=== PATIENT | female | born 1990 ===

== ENCOUNTER 2016-09-22 07:33 | Inpatient (IN) | payer OTHER, MEDICAID ==
[2016-09-22 08:14] VITALS: BMI 25.0
[2016-09-22] MEDS ORDERED: Sodium Citrate/Citric Acid 15 ml Sol PO ONE (08:14)
[2016-09-22] MEDS ORDERED: cefOXitin IV 1 gm in Dextrose 50 ML IVPB ONE (08:14)
[2016-09-22] MEDS ORDERED: Lactated Ringer's 1,000 ML IV SCH (08:15)
--- NOTE | 2016-09-22 08:38 | OBHP ---
Datetime: 09/22/2016 08:30 IP Adm Impression: Term, intrauterine ; Active labor IP Chief Complaint Other: mhftr mutation IP Admit Plan: Admit to unit; Initiate Section protocol Admit Comment, IP Provider: at 38.5weeks came with ctxs started at 6 am, 1-4 min, 9/110. pt has vaginal bleding, no lof,+fm. obx primi pmh MTHFR Gene mutayion soch denies ve 4/100/-2 a/p at 38+weeks in labor/MTHFR Gene muation/h/o Subarchonoic hemmorage in previous baby plN ADMIT TO L _D NPO/IVF LABS CONT MICHAEL AND EFM PTT/PT/INR ANTHESIA AWARE SKIN ABS INFORMED CONSENT TAKEN Pelvic Type - PN: Adequate Extremities - PN: Normal Abdomen - PN: Normal Back - PN: Normal Breast - PN: Normal Lungs - PN: Normal Heart - PN: Normal Thyroid - PN: Normal Neurologic - PN: Normal HEENT - PN: Normal General - PN: Normal FHR - Baseline A Provider: 130 Contraction Comments Provider: q1-4 Comments, ACOG Physical Exam: gravid,non tender ext no edema,no calf ten ve 4/100/-2 IP Hx Assessment: The History has been Reviewed and is Current EGA AdmitDate IP: 38.5 Vital Signs Provider: Reviewed; Within Normal Limits IP Chief Complaint: Uterine contractions NICHD Variability Prov Fetus A: Moderate 6-25bpm NICHD Accel Fetus A IP Provider: 15X15 FHR Category Provider Fetus A: Category I Dilatation, Provider: 4 Effacement, Provider: 100 Station, Provider: -2 Genitourinary Exam: Normal DTRs - PN: Normal
[2016-09-22 08:41] LABS: HEMATOCRIT 38.4 % (34.0-47.0); MEAN CELL VOLUME 92.5 fL (81.0-99.0); MEAN CORPUSCULAR HEMOGLOBIN 29.5 pg (27.0-31.0); MEAN CORPUSCULAR HGB CONC 31.9 g/dL (33.0-37.0); MEAN PLATELET VOLUME 9.8 fL (7.2-11.7); WHITE BLOOD COUNT 14.5 K/uL (4.8-10.8)
[2016-09-22] MEDS ORDERED: cefOXitin IV 2 gm in Dextrose 50 ML IVPB ONE (08:41)
[2016-09-22] MEDS ORDERED: Oxytocin 20 units in LR 2,000 ML IV ONE (08:41)
[2016-09-22 08:47] LABS: CHLORIDE 100 mmol/L (98-107); POTASSIUM 3.6 mmol/L (3.6-5.2); SODIUM 137 mmol/L (132-148)
[2016-09-22 08:50] LABS: ALB/GLOB RATIO 1.1 (1.0-2.1); ALKALINE PHOSPHATASE 132 U/L (38-126); ALT/SGPT 16 U/L (9-52); AST/SGOT 20 U/L (14-36); BILIRUBIN,TOTAL 0.7 mg/dL (0.2-1.3); BLOOD UREA NITROGEN 6 mg/dL (7-17); CARBON DIOXIDE 23 mmol/L (22-30); GFR AFRICAN-AMERICAN > 60; GLUCOSE,RANDOM 80 mg/dL (65-105); TOTAL PROTEIN 6.8 g/dL (6.3-8.3)
[2016-09-22 08:51] LABS: CALCIUM 8.5 mg/dl (8.6-10.4)
[2016-09-22] MEDS ORDERED: Morphine 1 mg/ml preservative-free Inj(Duramorph) ONE (08:56)
[2016-09-22] MEDS ORDERED: ePHEDrine 50 mg/ml Inj ONE (09:08)
[2016-09-22] MEDS ORDERED: Oxytocin 10 Units/ml Inj ONE (09:15)
[2016-09-22] MEDS ORDERED: Oxycodone/Acetaminophen 5/325 mg Tab PO PRN (09:38)
[2016-09-22] MEDS ORDERED: Enoxaparin 40 mg Syringe SC ONE (09:39)
[2016-09-22] MEDS ORDERED: Enoxaparin 40 mg Syringe SC SCH (09:45)
[2016-09-22] MEDS ORDERED: Naloxone 0.4 mg/ml Inj (Adult) IVP PRN (09:49)
[2016-09-22] MEDS ORDERED: DiphenhydrAMINE 50 mg/ml Inj IVP PRN (09:49)
--- NOTE | 2016-09-22 09:51 | PCM.SURG1 ---
Surgeon's Initial Post Op Note - Surgeon's Notes Surgeon: dr huerta Pulper Operator: dr myers Type of Anesthesia: Spinal Anesthesia Administered By: dr dixon Pre-Operative Diagnosis: 26 yr at 38+weeks h/o mhtfr mutation in labor Operative Findings: see the op reort Post-Operative Diagnosis: same Operation Performed: primary section Specimen/Specimens Removed: fetus placente. cord blod. cord gas Estimated Blood Loss: EBL {In ML}: 700 Blood Products Given: N/A Drains Used: No Drains Post-Op Condition: Good Date of Surgery/Procedure: 09/22/16 Time of Surgery/Procedure: 10:00
[2016-09-22 09:56] LABS: RBC URINE 3 /hpf (0-3); URINE BACTERIA RARE (<OCC); URINE BILIRUBIN NEGATIVE (NEGATIVE); URINE BLOOD 1+ (NEGATIVE); URINE COLOR Straw (YELLOW); URINE GLUCOSE (UA) NORMAL (Normal); URINE KETONE NEGATIVE (NEGATIVE); URINE LEUKOCYTE ESTERASE NEG Leu/uL (Negative); URINE PROTEIN NEGATIVE (NEGATIVE); URINE UROBILINOGEN NORMAL mg/dL (0.2-1.0); WBC URINE < 1 /hpf (0-5)
--- NOTE | 2016-09-22 13:19 | OP ---
PROCEDURE DATE: 09/22/2016 PREOPERATIVE DIAGNOSIS: A 26-year-old 1, para 0 at 38 weeks and 5 days, came in active labor with a history of MTHFR gene mutation requesting primary . SURGEON: Malcom Ariza MD SANDBLAST OR SHOTBLAST EQUIPMENT TENDER SURGEON: Dr. Garcia, who was present throughout the surgery for retraction, exposure and pus devorah at the time of the delivery. ANESTHESIA: Spinal. ANESTHESIOLOGIST: Dr. Tavo Hartmann PROCEDURE PERFORMED: Primary section. COMPLICATIONS: None. ESTIMATED BLOOD LOSS: 700 mL. PROCEDURE: After informed consent was obtained, the patient was brought to the operating room and pl aced on the table. Spinal anesthesia was given. When anesthesia was found to be adequate, she was p repped and draped in normal sterile fashion. Anaya catheter was inserted. After that, 2 cm above th e pubic bone, a skin incision was made with a knife, the subcutaneous with a Bovie. The fascia was e xcised and incision was extended on both sides using curved Palmer scissors. Fascia was firs t at the site of the pubic bone, then at the site of the umbilicus. Rectus muscle was . Th e peritoneum the abdominal cavity. Then the bladder flap was made. Bladder blade was . Lower uterine segment incision was made with a knife. This was extended on both sides using curved M kathryn scissors. Baby delivered in MELBA position. Cord was clamped and cut. Baby was handed to the [facility] section chief. After that, cord gas was sent. Uterus exteriorized, cleared of all the clots and debris. Placenta delivered manually and sent to the pathology. Uterus was closed using 1-0 Vicryl in nonlocking fashion, second layer closure with the same stitch. Bladder flap was closed. After th at, the cul-de-sac was cleared of all the clots and debris. Gutters were cleared of all the clots an d debris. After that, peritoneum was closed using Vicryl in nonlocking fashion, the muscle matt sed using 2-0 Vicryl in nonlocking fashion. The fascia was closed using 1-0 Vicryl in nonlocking fas hion. Subcutaneous with 0 Vicryl interrupted fashion. Skin closed using 2-0 Monocryl straight needl e. The patient tolerated the procedure well. Laps, sponge and instruments count correct x 2. Malcom Ariza MD cc: [id number] TT: 09/22/2016 13:19:18 en
[2016-09-22] MEDS: Simethicone 80 mg Chewtab PO SCH ×3 (15:50→22:04)
--- NOTE | 2016-09-23 06:32 | OBPPN ---
Datetime: 09/23/2016 06:29 PP Pain Prov: Within normal limits PP Nausea Prov: Denies PP Flatus Prov: No PP Abdomen/Uterus Prov: Normal PP Lochia Prov: Normal PP Extremities Prov: Normal PP Comments Phys Exam Prov: fudus below umblicus ext mild edema incision clean and dey PP Impression Prov: Normal progression PP Plan Prov: Continue present management PP Progress Note Prov: pt was seen at bed side, pain under control,no n/v, tolerating deit,voiding,m in ocha, flatuas- pod#1 s/p c/s cbc reg cont post op care pain management encourage ambulation Vital Signs Provider PP: Reviewed; Within Normal Limits
[2016-09-23 08:05] LABS: HEMATOCRIT 33.1 % (34.0-47.0); MEAN CELL VOLUME 93.1 fL (81.0-99.0); MEAN CORPUSCULAR HEMOGLOBIN 29.8 pg (27.0-31.0); MEAN PLATELET VOLUME 9.8 fL (7.2-11.7); RED CELL DISTRIBUTION WIDTH 16.2 % (11.5-14.5); WHITE BLOOD COUNT 14.7 K/uL (4.8-10.8)
[2016-09-23] MEDS: Simethicone 80 mg Chewtab PO SCH ×5 (09:05→21:20)
[2016-09-23] MEDS: Oxycodone/Acetaminophen 5/325 mg Tab PO PRN ×3 (09:13→21:19)
[2016-09-23] MEDS ORDERED: Bisacodyl 5mg EC Tab PO ONE (09:39)
[2016-09-23] MEDS ORDERED: Enoxaparin 40 mg Syringe SC SCH (10:00)
[2016-09-24] MEDS: Oxycodone/Acetaminophen 5/325 mg Tab PO PRN ×3 (07:25→21:35)
[2016-09-24 08:38] VITALS: O2SAT 97
[2016-09-24] MEDS: Simethicone 80 mg Chewtab PO SCH ×4 (09:01→21:34)
--- NOTE | 2016-09-24 10:19 | OBPPN ---
Datetime: 09/24/2016 10:15 PP Pain Prov: Within normal limits PP Pain Prov comment: Complains of incisional pain only. PP Nausea Prov: Denies PP Flatus Prov: Yes PP BM Prov: No PP Breasts Prov: Normal PP Heart Prov: Normal PP Lungs Prov: Normal PP Abdomen/Uterus Prov: Normal PP Lochia Prov: Normal PP Vulva/Perineum Prov: Normal PP CVA Tenderness Prov: Normal PP Extremities Prov: Normal PP C/S Incision Prov: Normal PP Progress Prov: Normal PP Comments Phys Exam Prov: Abdomen soft, appropriate incisional tenderness. Incision C/D/I. Good sophia wel sounds. PP Impression Prov: Normal progression PP Plan Prov: Continue present management PP Progress Note Prov: Stable. Anticipate discharge tomorrow. IP PP Procedures: None Vital Signs Provider PP: Reviewed; Within Normal Limits Vital Signs Provider Details PP: HgB 10.6g/dl.
[2016-09-24 16:16] VITALS: RESP 20
[2016-09-25] MEDS: Oxycodone/Acetaminophen 5/325 mg Tab PO PRN (08:55)
[2016-09-25] MEDS: Simethicone 80 mg Chewtab PO SCH ×2 (09:11→14:33)
[2016-09-25] MEDS ORDERED: Influenza Virus Vaccine 45 mcg/0.5 ml Syr IM ONE (10:00)
--- NOTE | 2016-09-25 10:47 | OBPPN ---
Datetime: 09/25/2016 10:29 PP Pain Prov: Within normal limits PP Nausea Prov: Denies PP Flatus Prov: Yes PP BM Prov: Yes PP Breasts Prov: Normal PP Heart Prov: Normal PP Lungs Prov: Normal PP Abdomen/Uterus Prov: Normal PP Lochia Prov: Normal PP Vulva/Perineum Prov: Normal PP CVA Tenderness Prov: Normal PP Extremities Prov: Normal PP C/S Incision Prov: Normal PP Progress Prov: Normal PP Comments Phys Exam Prov: Abdomen soft, nontender. Incision C/D/I. PP Impression Prov: Normal progression PP Plan Prov: Discharge PP Progress Note Prov: Discharge home. Follow up 2 weeks. Vital Signs Provider PP: Reviewed; Within Normal Limits
[2016-09-25 16:22] VITALS: BP 106/68; PULSE 72; TEMP 97
--- NOTE | 2016-09-27 12:47 | OBDS ---
DELIVERY PERSONNEL Delivery Doctor: DR LAWS/MIRZA Sanchez Nurse: Mindi Pat Conservation Engineer: Artur Pugh RN Anesthesiologist: AMY MATERNAL INFORMATION Delivery Anesthesia: Spinal Medications in Delivery: pitocin 40 mg /cytotec 1000 Estimated Blood Loss (ml): 700 Placenta Cultured: Yes Maternal Complications: None Provider Comments: baby deliverd in reva. end clean no com LABOR SUMMARY EDC: 10/01/2016 00:00 No. Babies in Womb: 1 LABOR INFORMATION Oxytocin: N/A Group B Beta Strep: Negative Antibiotics # of Doses: 1 Antibiotics Time of Last Dose: 8:00 Steroids Given: None Reason Steroids Not Administered: Not Applicable MEMBRANES Membranes Rupture Method: Artificial Rupture of Membranes: 09/22/2016 09:11 Length of Rupture (hrs): 0.00 Amniotic Fluid Color: Clear Amniotic Fluid Amount: Moderate Amniotic Fluid Odor: Normal STAGES OF LABOR Stage 3 hrs: 0 Stage 3 min: 1 VAGINAL DELIVERY Episiotomy: None Laceration Extension: N/A Laceration Type: None CSECTION DELIVERY Primary Indication: iup 38,5 Secondary Indication: in labor CSection Urgency: Emergency CSection Incidence: Primary Labor: Labor Elective: Elective CSection Incision: Lower Uterine Transverse BABY A INFORMATION Infant Delivery Date/Time: 09/22/2016 09:11 Method of Delivery: Born in Route : No : N/A Forceps: N/A Vacuum Extraction: N/A Shoulder Dystocia : No SHOULDER DYSTOCIA BABY A Delivery Date/Time: 09/22/2016 09:11 PRESENTATION/POSITION BABY A Presentation: Cephalic Cephalic Presentation: Vertex Vertex Position: Right Occipital Anterior Breech Presentation: N/A PLACENTA INFORMATION BABY A Placenta Delivery Time : 09/22/2016 09:12 Placenta Method of Delivery: Manual Removal Placenta Status: Delivered SCORES BABY A Heart Rate 1 min: >100 bpm Resp Effort 1 min: Good Cry Reflex Irritability 1 min: Cough or Sneeze or Pulls Away Muscle Tone 1 min: Active Motion Color 1 min: Body [employer], Extremities Blue SCORE 1 MIN: 9 Heart Rate 5 min: >100 bpm Resp Effort 5 min: Good Cry Reflex Irritability 5 min: Cough or Sneeze or Pulls Away Muscle Tone 5 min: Active Motion Color 5 min: Body [employer], Extremities Blue SCORE 5 MIN: 9 INFORMATION BABY A Gestational Age at Delivery: 38.5 Gestational Status: Term Infant Outcome : Liveborn Condition : Stable Infant Sex: Female IDENTIFICATION/MEDS BABY A ID Band Number: [id number] ID Band Location: Left Leg; Left Arm Sensor Applied: Yes Sensor Number: [id number] Sensor Location : Cord Clamp WEIGHT/LENGTH BABY A Infant Birthweight (gms): 2880 Weight (lb): 6 Infant Weight (oz): 6 Length Inches: 20.00 Length cms: 50.8 CORD INFORMATION BABY A No. Cord Vessels: 3 Nuchal Cord : N/A Cord Blood Taken: Yes Suction: Mouth; Nose ASSESSMENT BABY A Complications: None Physical Findings at Delivery: Within Normal Limits Infant Respirations: Appears Normal Trigonometry Tutor/ALS Called : No Care By: NOHELIA Transferred To: Remains with Mother
--- NOTE | 2016-09-27 12:47 | OBDCSUM ---
Datetime: 09/25/2016 15:42 Discharge Diagnosis, Provider: Term Delivered Discharge Diagnosis Prov Other: s/p c/s 38weeks
== END 2016-09-25 16:30 | disposition home or self-care (01) | DRG 765 ==
LOC: C.EROB 07:33 → C.4D 08:18 → C.4M 14:15
PROVIDERS: ADMIT Specialist; ATTEND Specialist
PROC: 10D00Z1 Extraction of Products of Conception, Low, Open Approach (ICD-10-PCS; principal; 2016-09-22)
DX: O99.284 Endocrine, nutritional and metabolic diseases complicating childbirth (principal); E72.12 Methylenetetrahydrofolate reductase deficiency; Z3A.38 38 weeks gestation of pregnancy; Z37.0 Single live birth